=== PATIENT | female | born 1945 | race Caucasian/White ===

== ENCOUNTER 2025-05-20 21:32 | Inpatient (IN) | payer MEDICARE, SELFPAY ==
[2025-05-20 21:34] VITALS: BP 192/68; PULSE 76; RESP 15; TEMP 36.5; O2SAT 97; BMI 43.0
--- NOTE | 2025-05-20 21:56 | CT_ITS ---
EXAM: BRAIN/HEAD WITHOUT CONTRAST CLINICAL HISTORY: 79 y/o F with CONFUSION, HYPERTENSION. COMPARISON: None. TECHNIQUE: Routine CT imaging of the head without IV contrast. Additional multiplanar reformats were obtained. Dose reduction techniques were used including intermediate exposure control (AEC),iterative reconstruction technique, and/or mA and/or KV dose adjustments based on patient's size. FINDINGS: The ventricles, sulci and cisterns are normal for patient age. There is no evidence of acute intracranial hemorrhage or herniation. There is no midline shift, mass effect, or extra-axial collection. Moderate patchy supratentorial white matter hypodensities and moderate hypodensities throughout the bilateral centrum semiovale. The remy and white matter interfaces are otherwise maintained. The orbits, visualized paranasal sinuses and mastoids are unremarkable. No acute calvarial fracture or scalp hematoma. CT/Brain/Head without Contrast IMPRESSION: No acute intracranial finding. Reading Location: [id number]
--- NOTE | 2025-05-20 21:56 | EDS_ITS ---
HPI History of Present Illness Chief Complaint: Alt LOC Detail of Chief Complaint: Altered mental status, uncapped and HPI narrative Informant: patient, EMS and police/sales administration manager Onset/Context/Timing Onset: - (Uncertain please read HPI narrative for detail) Context: - (Uncertain) Timing: - (Unknown) Quality: Multiple reports regarding patient driving erratically and 30 miles of the Location: Pulled over by estate planning counselor who called paramedics Current Severity: Mild Maximum Severity: Moderate Worsened by: Patient apparently is not able to bathe or self, she was covered with feces Relieved by: Nothing Associated Symptoms Associated Symptoms: Patient does not know names of her medication. She is not from [facility]. Narrative Narrative: Patient is an 79-year-old woman. She apparently has history of type 2 diabetes, hypertension, hypercholesterolemia and does not believe she has heart disease. She is from [place]. She states she does have a home. Multiple calls were made regarding her driving erratically and 30+ miles on the speed limit. She was pulled over by estate planning counselor. mud worker was concerned because she was covered with feces and the floor mats were covered with feces. Squad was called and she was transported to [facility]. Patient is upset. She does not know her name. She is noted she is in a hospital in [place]. She knows that May 20. She however is unable to tell me her medications. She at times stumbles with the words. She denies headache. Denies double vision blurred vision loss of vision. Denies ringing or ears. Denies trouble with speech or swallowing. She denies chest pain, pressure, tightness or heaviness. She denies shortness of breath or difficulty breathing. She denies abdominal pain, nausea, vomiting or diarrhea. She reports no urinary symptoms. Nurse informing that she was covered with feces. They are presently cleaning her. She apparently attempted to get help but was unsuccessful and did not know how to get help. She states she resides in [place]. She has a doctor in [place]. Prior similar symptoms: No PFSH [facility] Medical History Breast cancer Hernia Anemia HTN (hypertension) Home Medications ?Medication ?Instructions ?Recorded ?Last Taken ?Type Unobtainable 05/20/25 Unknown History Allergy/AdvReac Type Severity Reaction Status Date / Time wool Allergy Rash Verified 05/20/25 22:06 rocha pepper (pepper green) AdvReac Diarrhea Verified 05/20/25 22:06 Penicillins AdvReac confusion Verified 05/20/25 21:38 Surgical History H/O colectomy Social History household members: none housing: house Smoking Status: Never smoker ROS ROS ED Constitutional Constitutional ED: Denies chills, fever(s), subjective or sweats Eyes Eyes: Denies blurry vision or change in vision ENT ENT ED: Denies ear pain, rhinorrhea or sore throat Cardiovascular Cardiovascular: Denies chest pain or palpitations Respiratory/Chest Respiratory/Chest: Denies cough, dyspnea or dyspnea on exertion Gastrointestinal Gastrointestinal: Reports other Details: Known nonreducible abdominal hernia, left lower quadrant ; Denies abdominal pain, nausea or vomiting Genitourinary Genitourinary ED: Denies dysuria, hematuria or urinary frequency Musculoskeletal Musculoskeletal: Denies arthralgias or myalgias Integumentary Denies abscess or rash Neurologic Neurologic: Denies headache(s), paresthesias or weakness Psychiatric Psychiatric: Reports anxiety; Denies depression or suicidal ideation Hematologic/Lymphatic Hematologic/Lymphatic: Reports systems reviewed and no addt'l complaints, except as documented EXAM Physical Exam Const Vital Signs: 05/20/25 21:34 05/20/25 22:45 Temperature 97.7 F L Temperature Source Oral Pulse Rate 76 82 Respiratory Rate 15 23 H Blood Pressure 192/68 H 180/81 H Blood Pressure Mean 109 108 Pulse Ox 97 98 Oxygen Delivery Method Room Air Positive well nourished and well developed Constitutional Narrative: Patient does have feces on her lower extremity. Blood pressure is elevated. She began to cry when the nurse informing that the state patrol called EMS because of her driving. She apparently is unable to care for herself. She is attempted to get help but has been unsuccessful. General Appearance ED: well developed, NAD and pallor; Negative for cyanotic or diaphoretic HEENT Reports dry mucous membranes HEENT Narrative: Head is atraumatic and normocephalic. Ears normal. Nares patent. Posterior pharynx is normal. Mouth ED: Yes dry mucous membranes Mouth: dry mucous membranes Eyes PERRL and EOMs intact bilaterally Eyes Narrative: Patient is wearing bifocals. General Eye ED: Negative for pale conjunctiva or scleral icterus Neck no lymphadenopathy, supple and no JVD Chest Wall inspection of chest normal and palpation of chest normal Resp normal respiratory effort and clear to auscultation bilaterally Cardio regular rate, regular rhythm, S1 normal heart sound, S2 normal heart sound and no murmurs GI non-distended; Negative for normal to inspection, nondistended, normoactive bowel sounds, non-tender, hepatosplenomegaly or no masses GI Narrative: There is a nonreducible left lower quadrant abdominal hernia that has been present for some time. Auscultation: hypoactive bowel sounds Palpation: soft and tender LLQ Narrative: Covered with feces per nursing staff. She was cleaned prior to obtaining straight cath urine. Back/Spine no CVA tenderness Extremity Negative for normal to inspection Extremity Narrative: Pitting edema of lower extremities with what appears to be chemical dermatitis and possibly venous stasis dermatitis. Nurses are still cleaning feces from her legs and feet. Neuro oriented x3 and CN's II-XII intact bilaterally Sensorium / Orientation: alert Psych Mood & Affect: anxious Skin No no rashes or lesions noted and skin turgor normal General Skin Exam: pallor; Negative for jaundice MDM MDM MDM Narrative Medical decision making narrative: Prior records also of breast cancer. Will obtain CT of the head to determine if there is any metastasis or any other abnormalities that would explain her disorientation. Will undertake metabolic infectious workup as well. Since she is not tachypneic, tachycardic hypoxic and there were no abnormal auscultate findings chest x-ray was not obtained. Lab Data Attestation: I reviewed the patient's lab results. Lab results narrative: CBC is unremarkable. UA is consistent with infection. Macro reveals protein, occult blood, nitrites, urobilinogen and leukoesterase. Micro reveals greater than 100 RBCs, 25-50 WBCs with only 0-5 epithelial cells and 4+ bacteria. Culture was obtained and patient was treated with Rocephin. She lists confusion as her reaction which is not a true allergy. Comprehensive metabolic panel is unremarkable. Glucose slightly elevated 125 with normal CO2 anion gap. Labs: Laboratory Results - last 24 hr 05/20/25 05/20/25 21:30 21:59 WBC 8.2 RBC 3.86 L Hgb 12.0 Hct 36.7 L MCV 95.1 MCH 31.1 MCHC 32.7 RDW Std Deviation 47.9 H RDW Coeff of Tessie 13.8 Plt Count 313 MPV 9.9 Immature Gran % (Auto) 0.400 Neut % (Auto) 66.1 Lymph % (Auto) 15.8 L [place] % (Auto) 10.1 H Eos % (Auto) 6.7 H Baso % (Auto) 0.9 Absolute Neuts (auto) 5.4 Absolute Lymphs (auto) 1.29 Nucleated RBC % 0 Sodium 141 Potassium 4.1 Chloride 105 Carbon Dioxide 25.4 Anion Gap 10 BUN 14 Creatinine 0.96 Estim Creat Clear Calc 57.77 Est GFR (MDRD) Non-Af 60 BUN/Creatinine Ratio 14.7 Glucose 125 H Lactic Acid 1.5 Calcium 9.9 Total Bilirubin 0.61 AST 26 ALT 15 Alkaline Phosphatase 85 Total Protein 8.2 Albumin 3.7 Globulin 4.6 H Albumin/Globulin Ratio 0.8 L Urine Color Yellow Urine Clarity Cloudy Urine pH 7.0 Ur Specific [place] 1.015 Urine Protein 30 H Urine Glucose (UA) Normal Urine Ketones Negative Urine Occult Blood 250 H Urine Nitrite Positive H Urine Bilirubin Negative Urine Urobilinogen 4 H Ur Leukocyte Esterase 100 H Urine RBC > 100 SEEN Urine WBC 25-50 SEEN Ur Squamous Epith Cells 0-5 SEEN Urine Bacteria 4+ Urine Mucus 0 SEEN Radiography Diagnostic Testing: Clinical Impression(s) from Imaging Studies Brain CT 05/20/25 21:56 IMPRESSION: No acute intracranial finding. Reading Location: [id number] CT of the head without contrast was reviewed by me at 2232. There is no evidence of mass effect, vasogenic edema, intracranial bleed. There is no fluid noted in the sinuses. Management Discussion w/another healthcare provider: Hospitalist (Case was discussed with Dr. Quentin Jeffries. She will be a full admit MedSurg. He was made aware of her findings and social situation) Treatment and Re-Evaluation :: This may represent delirium since patient at times is oriented and appropriate. At times she is not. Discharge Plan Dx/Rx/DC Orders Clinical Impression: Complicated urinary tract infection, Acute alteration in mental status, Elevated blood pressure reading with diagnosis of hypertension, Type 2 diabetes mellitus with hyperglycemia, History of breast cancer, Tachypnea Disposition Disposition: Acute Care Hospital [facility]
[2025-05-20 22:26] LABS: Mucous, Urine 0 SEEN /hpf (<or=2+)
[2025-05-20 22:29] LABS: Hematocrit 36.7 % (37-47); Hemoglobin 12.0 g/dL (12.0-15.0); Immature Granulocytes Count 0.030 X10^3/uL (0.0-0.0); Mean Corp Hgb Conc 32.7 g/dL (32-36); Mean Corpuscular Volume 95.1 fL (81-99); Mean Platelet Vol. 9.9 fl (6.2-12.0); NRBC Flagged by Analyzer 0 % (0-5); Platelet Count 313 K/mm3 (150-450); RBC Distribution Width CV 13.8 % (11.6-14.6); RBC Distribution Width SD 47.9 fl (35.1-43.9); Red Blood Count 3.86 M/mm3 (4.2-5.4); White Blood Count 8.2 K/mm3 (4.4-11.0)
[2025-05-20 22:30] LABS: Color, Urine Yellow (Yellow); Glucose, Dipstick Normal (Normal); Ketone-Dipstick Negative (Negative); Leukocyte Esterase-Dipstick 100 /ul (Negative); Nitrite-Dipstick Positive (Negative); Occult Blood-Urine 250 /ul (Negative); Protein-Dipstick 30 mg/dl (Negative); Specific Gravity, Urine 1.015 (1.002-1.030); Urine Bilirubin Dipstick Negative (Negative)
[2025-05-20 22:40] LABS: Red Blood Cells-Urine > 100 SEEN /hpf (0-5)
[2025-05-20 22:41] LABS: Squamous Epithelial Cells - UA 0-5 SEEN /hpf (5-10)
[2025-05-20 22:45] VITALS: BP 180/81; PULSE 82; RESP 23; O2SAT 98
[2025-05-20 22:57] LABS: AST(SGOT) 26 U/L (<=31); Alanine Aminotransfer ALT/SGPT 15 U/L (<=34); Albumin, Serum 3.7 g/dL (3.4-4.8); Alkaline Phosphatase 85 U/L (35-104); Anion Gap 10 (5-15); BUN 14 mg/dL (4-19); BUN/Creat Ratio 14.7 RATIO (10-20); Calcium,Total 9.9 mg/dL (7.6-11.0); Carbon Dioxide 25.4 mmol/L (21.0-32.0); Chloride 105 mmol/L (98-108); Estimated Creatinine Clearance 57.77 ml/min (50-250); Globulin 4.6 g/dL (2.2-4.2); Glucose 125 mg/dL (70-99); Potassium 4.1 mmol/L (3.3-5.1)
--- NOTE | 2025-05-20 23:25 | HP.PCM.HOS_ITS ---
HPI - General General Date of Admission: 05/20/25 Date of Service: 05/20/25 Chief Complaint: AMS. HPI Narrative SHEEBA DE LA VEGA, is a 79 F with a past medical history of essential hypertension, morbid obesity; BMI of 43 this admission, DM-2; of unknown control, history of breast cancer and history of colectomy who presents to [facility] ER with complaints of altered mental status. Ms. De La Vega is not a reliable historian at this time so information was gathered from chart, medical staff and computer. According to the records the patient was pulled over by [employer] for erratic breathing as she was apparently returning home to [place], [place] where she is apparently from after visiting family in the area. career specialist was concerned because she was covered with feces and the floor mats were covered with feces with EMS then activated to bring her here for further evaluation and treatment. The patient does not know her name but she is visibly upset she knows she is in [facility] and she knows it is May 20 but she is unable to recall any of her medications and she is also stumbling over her words. According to the ER physician she denied headache, blurred vision, difficulty swallowing, focal motor neurologic deficits, chest pain, palpitations, heart racing, lower extremity edema, abdominal pain, nausea, vomiting, constipation, dysuria, hematuria or rash. In the ER she was noted to have a UA positive for evidence of acute cystitis; with microscopic hematuria complicated by clinical evidence of Metabolic Encephalopathy further compounded by Uncontrolled Hypertension; blood pressure 192/68 mmHg present on admission with apparently new Diarrhea and she was then admitted to the general medical floor with telemetric monitoring for ongoing care for stay that is expected to extend beyond 2 midnights. [facility] Medical History Breast cancer Hernia Anemia HTN (hypertension) Home Medications ?Medication ?Instructions ?Recorded ?Last Taken ?Type Unobtainable 05/20/25 Unknown History Allergy/AdvReac Type Severity Reaction Status Date / Time wool Allergy Rash Verified 05/20/25 22:06 rocha pepper (pepper green) AdvReac Diarrhea Verified 05/20/25 22:06 Penicillins AdvReac confusion Verified 05/20/25 21:38 Surgical History H/O colectomy Social History household members: none housing: house Smoking Status: Never smoker ROS ROS Narrative Review of Systems: (Somewhat limited due to confusion) Constitutional: Patient denies fever or chills. Eyes: Patient denies changes in vision or discharge from eyes. ENT: Patient denies runny nose, sore throat or ear pain. Resp: Patient denies shortness of breath or cough. CV: Patient denies chest pain, palpitations, heart racing or lower extremity edema. GI: Patient admits to diarrhea with rectal urgency that is new. She is not sure if she had recent antibiotics. : Patient denies dysuria or hematuria. MSK: Patient denies arthralgias or myalgias. Skin: Patient denies rash, abscess, wounds or jaundice. Psych: Patient has an anxious personality but she denies SI or HI. Neuro: Patient admits to confusion but she denies headache, paresthesias or focal motor neurologic deficits. Allergy: Patient denies lip swelling, tonsillar urticaria. Hematology: Patient denies easy bleeding or easy bruisability. Endocrinology: Patient denies polyuria, polydipsia, polyphagia or heat/cold intolerance. 14 point ROS otherwise negative except for positives noted above in HPI. Vital Signs Vital Signs Vital Signs: 05/20/25 21:34 05/20/25 22:45 Temperature 97.7 F L Temperature Source Oral Pulse Rate 76 82 Respiratory Rate 15 23 H Blood Pressure 192/68 H 180/81 H Blood Pressure Mean 109 108 Pulse Ox 97 98 Oxygen Delivery Method Room Air Weight Weight: 250 lb 10.649 oz Body Mass Index (BMI) 43.0 Physical Exam Const alert and no apparent distress Constitutional Narrative: Patient is morbidly obese and alert but confused. Orientation / Consciousness: confused HEENT normocephalic, head/scalp atraumatic, hearing grossly normal bilaterally and moist oral mucous membranes Eyes PERRL, EOMs intact bilaterally and conjunctivae normal Neck no lymphadenopathy, supple and no JVD Resp normal respiratory effort, no retractions, no use of accessory muscles and clear to auscultation bilaterally Cardio regular rate and regular rhythm GI GI Narrative: Patient has non-reducible abdominal hernia in the LLQ. Extremity normal to inspection, full ROM and no clubbing, cyanosis or edema Skin Skin Narrative: Patient has no evidence of rash, abscess, wounds or jaundice. Neuro CN's II-XII intact bilaterally and moves all extremities Sensorium / Orientation: awake, alert and oriented to person Speech: speech normal Psych affect normal Results Medical Records Data Attestation: I reviewed the patient's medical records Lab / Micro Data Attestation: I reviewed the patient's lab results. 05/20/25 21:30 05/20/25 21:30 Labs: Laboratory Results - last 24 hr 05/20/25 21:30: WBC 8.2, RBC 3.86 L, Hgb 12.0, Hct 36.7 L, MCV 95.1, MCH 31.1, MCHC 32.7, RDW Std Deviation 47.9 H, RDW Coeff of Tessie 13.8, Plt Count 313, MPV 9.9, Immature Gran % (Auto) 0.400, Neut % (Auto) 66.1, Lymph % (Auto) 15.8 L, M bri % (Auto) 10.1 H, Eos % (Auto) 6.7 H, Baso % (Auto) 0.9, Absolute Neuts (auto) 5.4, Absolute Lymphs (auto) 1.29, Nucleated RBC % 0, Sodium 141, Potassium 4.1, Chloride 105, Carbon Dioxide 25.4, Anion Gap 10, BUN 14, Creatinine 0.96, Estim Creat Clear Calc 57.77, Est GFR (MDRD) Non-Af 60, BUN/Creatinine Ratio 14.7, Glucose 125 H, Lactic Acid 1.5, Calcium 9.9, Total Bilirubin 0.61, AST 26, ALT 15, Alkaline Phosphatase 85, Total Protein 8.2, Albumin 3.7, Globulin 4.6 H, Albumin/Globulin Ratio 0.8 L 05/20/25 21:59: Urine Color Yellow, Urine Clarity Cloudy, Urine pH 7.0, Ur Specific [place] 1.015, Urine Protein 30 H, Urine Glucose (UA) Normal, Urine Ketones Negative, Urine Occult Blood 250 H, Urine Nitrite Positive H, Urine Bilirubin Negative, Urine Urobilinogen 4 H, Ur Leukocyte Esterase 100 H, Urine RBC > 100 SEEN, Urine WBC 25-50 SEEN, Ur Squamous Epith Cells 0-5 SEEN, Urine Bacteria 4+, Urine Mucus 0 SEEN Imaging Radiology Impression Brain CT 05/20/25 21:56 IMPRESSION: No acute intracranial finding. Reading Location: [id number] Assessment & Plan Assessment/Plan (1) Acute cystitis with hematuria: (2) Diarrhea: QUALIFIERS: Diarrhea type: presumed infectious Qualified Code(s): R19.7 - Diarrhea, unspecified (3) Uncontrolled hypertension: (4) Acute metabolic encephalopathy: (5) Morbid obesity with BMI of 40.0-44.9, adult: PLAN: Plan 1. UA positive for evidence of Acute Cystitis; with microscopic hematuria - Admit to general medical floor with telemetric monitoring. Continue IV ceftriaxone begun in the ER and await culture and sensitivity data. Give acetaminophen as needed for pain or fever. Give ondansetron IV as needed for nausea or vomiting. 2. Diarrhea; with the patient covered with stools upon arrival complicating #1 - Check stool studies and place on enteric precautions. Begin empiric IV metronidazole until C. difficile definitively ruled out. 3. Uncontrolled Hypertension; blood pressure 192/68 mmHg present on admission complicating #1 & #2 - Patient's blood pressure spontaneously improved to 133/84 mmHg after initial round of treatment which only has included ceftriaxone. Give hydralazine IV as needed for systolic blood pressure greater than 160 mmHg. Finally, we will attempt to obtain patient's official medication list so she can restart her home medications if deemed appropriate by daysidft hospitalist. 4. Acute Metabolic Encephalopathy attributable to #1 - #3 - Avoid potentially RAW SAMPLER-active agents in an effort to allow sensorium to clear. Check MEAGAN, UDS, TSH, B12 and Folate to evaluate for other potential reversible causes of confusion. Otherwise, continue supportive care as outlined in plan and monitor for improvement. 5. Morbid (class III) obesity; BMI of 43 this admission adding to the burden of disease outlined from #1 - #4 - Weight loss will be recommended. Check TSH. This complicates her case and may hamper recovery. 6. DM-2; of unknown control - ADA diet. FSBS q. AC/HS plus lowest-intensity SSI. Check HgbA1c to objectively assess quality of diabetic control. 7. History of breast cancer - Noted. 8. History of colectomy - Noted. 9. DVT prophylaxis - Enoxaparin 40 mg SQ twice daily plus SCDs. Total time: Approximately (but not less than) 75 minutes. Charges/Coding Visit Charges Inpatient E&M: 06604 Init Hosp L3
[2025-05-20] MEDS: Ceftriaxone 2 GM in 0.9% Normal Saline (50mL MB+) 50 ML IV (23:26)
[2025-05-20 23:33] VITALS: BP 133/84; PULSE 82; RESP 19; TEMP 36.5; O2SAT 98
[2025-05-20 23:34] VITALS: BP 133/84; PULSE 82; RESP 19; TEMP 36.5; O2SAT 908
[2025-05-21] VITALS (10 sets, daily range): BP systolic 151–190; BP diastolic 57–90; PULSE 81–88; RESP 16–19; TEMP 36.6–37; O2SAT 93–97; BMI 46.4; BMI 46.7
[2025-05-21 00:29] LABS: Magnesium 1.9 mg/dL (1.5-2.2)
[2025-05-21] MEDS: 0.9% Normal Saline (1000mL) 1,000 ML 100 ML IV (00:32)
[2025-05-21] MEDS: metroNIDAZOLE 500 MG/100 ML BAG 100 MG IV ×2 (00:34→05:10)
[2025-05-21 00:38] LABS: Barbiturate Urine NEGATIVE (< 200 ng/mL); Benzodiazepine Urine NEGATIVE (< 200 ng/mL); PCP Urine NEGATIVE (< 25 ng/mL); THC Urine NEGATIVE (< 50 ng/mL)
[2025-05-21 00:38] LABS: Alcohol, Blood (Medical)-Serum < 10.1 mg/dL (<=10.0); FOLATES,SERUM (FOLIC ACID) 17.40 ng/mL (4.60-34.80)
[2025-05-21] MEDS: 0.9% Saline Lock 10 ML Syringe IV (00:57)
[2025-05-21 05:24] LABS: Hematocrit 33.1 % (37-47); Hemoglobin 10.9 g/dL (12.0-15.0); Immature Granulocytes Count 0.020 X10^3/uL (0.0-0.0); Mean Corp Hgb Conc 32.9 g/dL (32-36); Mean Corpuscular Volume 94.0 fL (81-99); Mean Platelet Vol. 9.4 fl (6.2-12.0); NRBC Flagged by Analyzer 0 % (0-5); Platelet Count 291 K/mm3 (150-450); RBC Distribution Width CV 13.8 % (11.6-14.6); RBC Distribution Width SD 47.5 fl (35.1-43.9); Red Blood Count 3.52 M/mm3 (4.2-5.4); White Blood Count 7.9 K/mm3 (4.4-11.0)
[2025-05-21 06:13] LABS: Vitamin B12 522 pg/mL (180-914)
[2025-05-21 07:05] LABS: AST(SGOT) 25 U/L (<=31); Alanine Aminotransfer ALT/SGPT 12 U/L (<=34); Albumin, Serum 3.3 g/dL (3.4-4.8); Alkaline Phosphatase 75 U/L (35-104); Anion Gap 12 (5-15); BUN 13 mg/dL (4-19); BUN/Creat Ratio 15.5 RATIO (10-20); Calcium,Total 9.4 mg/dL (7.6-11.0); Carbon Dioxide 20.1 mmol/L (21.0-32.0); Chloride 107 mmol/L (98-108); Cholesterol 121 mg/dL (<=200); Estimated Creatinine Clearance 63.45 ml/min (50-250); Globulin 4.2 g/dL (2.2-4.2); Glucose 117 mg/dL (70-99); Low Density Lipoprotein Calc. 74 mg/dL; Potassium 4.0 mmol/L (3.3-5.1); Triglycerides 88 mg/dL; Very Low Density Lipoprotein 18 mg/dL (5-40); cholesterol:hdl ratio screen 4.17
--- NOTE | 2025-05-21 08:07 | PCM.PN.HOSP ---
Reason for Visit Reason for Visit: Altered mental status Subjective Subjective Mental status back to baseline today. She is not alert and oriented x 3 and no stumbling over her words. She states her lower extremity skin changes are chronic. She does report some dysuria and frequency. We did discuss placement at discharge but she was initially a little bit hesitant but seems more amenable at the end of her conversation. Objective Data Objective Data Vital Signs: Vital Signs Temp Pulse Resp BP Pulse Ox O2 Del Method 98 F 87 17 151/57 H 93 Room Air 05/21/25 04:23 05/21/25 07:12 05/21/25 04:23 05/21/25 06:52 05/21/25 04:23 05/21/25 04:23 Oxygen Delivery Method Room Air Weight: 115.2 kg Body Mass Index (BMI) 46.7 Intake & Output: Intake and Output for Last 24 Hours 05/19/25 05/20/25 05/21/25 23:59 23:59 23:59 Intake Total 450 / 450 Balance 450 / 450 Lab / Micro Data 05/21/25 05:08 05/21/25 05:08 Labs: Laboratory Results - last 24 hr 05/20/25 21:30: WBC 8.2, RBC 3.86 L, Hgb 12.0, Hct 36.7 L, MCV 95.1, MCH 31.1, MCHC 32.7, RDW Std Deviation 47.9 H, RDW Coeff of Tessie 13.8, Plt Count 313, MPV 9.9, Immature Gran % (Auto) 0.400, Neut % (Auto) 66.1, Lymph % (Auto) 15.8 L, Hall % (Auto) 10.1 H, Eos % (Auto) 6.7 H, Baso % (Auto) 0.9, Absolute Neuts (auto) 5.4, Absolute Lymphs (auto) 1.29, Nucleated RBC % 0, Sodium 141, Potassium 4.1, Chloride 105, Carbon Dioxide 25.4, Anion Gap 10, BUN 14, Creatinine 0.96, Estim Creat Clear Calc 57.77, Est GFR (MDRD) Non-Af 60, BUN/Creatinine Ratio 14.7, Glucose 125 H, Hemoglobin A1c 5.5, Lactic Acid 1.5, Calcium 9.9, Phosphorus 3.2, Magnesium 1.9, Total Bilirubin 0.61, AST 26, ALT 15, Alkaline Phosphatase 85, Total Protein 8.2, Albumin 3.7, Globulin 4.6 H, Albumin/Globulin Ratio 0.8 L, TSH 1.690 05/20/25 21:39: Serum Folate 17.40, Ethyl Alcohol < 10.1 05/20/25 21:59: Urine Color Yellow, Urine Clarity Cloudy, Urine pH 7.0, Ur Specific [place] 1.015, Urine Protein 30 H, Urine Glucose (UA) Normal, Urine Ketones Negative, Urine Occult Blood 250 H, Urine Nitrite Positive H, Urine Bilirubin Negative, Urine Urobilinogen 4 H, Ur Leukocyte Esterase 100 H, Urine RBC > 100 SEEN, Urine WBC 25-50 SEEN, Ur Squamous Epith Cells 0-5 SEEN, Urine Bacteria 4+, Urine Mucus 0 SEEN, Urine Opiates Screen NEGATIVE, U Buprenorphine Qual NEGATIVE, Ur Oxycodone Screen NEGATIVE, Urine Methadone Screen NEGATIVE, Urine Fentanyl Screen NEGATIVE, Ur Barbiturates Screen NEGATIVE, Ur Phencyclidine Scrn NEGATIVE, Ur Amphetamines Screen NEGATIVE, U Benzodiazepines Scrn NEGATIVE, Urine Cocaine Screen NEGATIVE, U Cannabinoids Screen NEGATIVE 05/21/25 05:08: WBC 7.9, RBC 3.52 L, Hgb 10.9 L, Hct 33.1 L, MCV 94.0, MCH 31.0, MCHC 32.9, RDW Std Deviation 47.5 H, RDW Coeff of Tessie 13.8, Plt Count 291, MPV 9.4, Immature Gran % (Auto) 0.300, Neut % (Auto) 67.6, Lymph % (Auto) 15.3 L, Hall % (Auto) 10.4 H, Eos % (Auto) 5.6 H, Baso % (Auto) 0.8, Absolute Neuts (auto) 5.4, Absolute Lymphs (auto) 1.21, Nucleated RBC % 0, Sodium 139, Potassium 4.0, Chloride 107, Carbon Dioxide 20.1 L, Anion Gap 12, BUN 13, Creatinine 0.85, Estim Creat Clear Calc 63.45, Est GFR (MDRD) Non-Af 69, BUN/Creatinine Ratio 15.5, Glucose 117 H, Calcium 9.4, Total Bilirubin 0.53, AST 25, ALT 12, Alkaline Phosphatase 75, Total Protein 7.5, Albumin 3.3 L, Globulin 4.2, Albumin/Globulin Ratio 0.8 L, Triglycerides 88, Cholesterol 121, LDL Cholesterol, Calc 74, VLDL Cholesterol 18, HDL Cholesterol 29 L, Cholesterol/HDL Ratio 4.17, Vitamin B12 522 05/21/25 06:49: POC Glucose 151 H Radiography Diagnostic Testing: Radiology Impression Brain CT 05/20/25 21:56 IMPRESSION: No acute intracranial finding. Reading Location: [facility] Physical Exam Const alert, oriented x3, no apparent distress and well nourished; Negative for average body habitus or healthy appearing Constitutional Narrative: Morbidly obese, older, white female, sitting up in a chair at the bedside, family at the bedside, patient appears comfortable and nontoxic, eating lunch and talking to the nursing home social worker HEENT head/scalp atraumatic and moist oral mucous membranes HEENT Narrative: Dentures in place, Mallampati 3, no thrush Head and Scalp: normocephalic Resp normal respiratory effort, no retractions, no use of accessory muscles and clear to auscultation bilaterally Auscultation: Negative for rales, rhonchi or wheezes Cardio regular rate, regular rhythm, S1 normal heart sound, S2 normal heart sound, no murmurs, no rub and no clicks GI normal to inspection, nondistended, normoactive bowel sounds, soft to palpation and non-tender GI Narrative: Large protuberant abdomen with noted old surgical incision Extremity Extremity Narrative: Chronic lower extremity venous stasis changes with venous stasis wounds with no signs of infection, chronic lower extremity edema, no clubbing or cyanosis Neuro moves all extremities and no focal motor deficits Neuro Narrative: Generalized weakness noted with no focal deficits, weakness is greater proximal to distally Speech: speech normal Psych affect normal Psych Narrative: Eye contact is good and patient interacts appropriately Assessment & Plan Assessment/Plan (1) Acute metabolic encephalopathy: (2) Uncontrolled hypertension: (3) Diarrhea: QUALIFIERS: Diarrhea type: presumed infectious Qualified Code(s): R19.7 - Diarrhea, unspecified (4) Abnormal urinalysis: PLAN: Plan Toxic/metabolic encephalopathy - Resolved - Suspect may be related to acute cystitis - B12, folate, and TSH are all within normal limits Abnormal UA - Strongly suggestive of acute urinary tract infection - Continue ceftriaxone - Await cx results and narrow antibiotics as appropriate Diarrhea - Stool lactoferrin negative - C. difficile is negative - Enteric panel pending Bilateral lower extremity chronic venous stasis - No signs of infection - Consult wound care Generalized weakness/debility - PT/OT consultation - commercial sales manager/social work consultation - Highly anticipate patient will need placement at discharge at rehab prior to going home--> patient will need pre-CERT as she has [employer] Medicare Essential hypertension/hyperlipidemia - Medications from home have been verified so we will restart home atenolol and Aldactone - continue home as needed hydralazine - Continue home pravastatin DM-2 - Hold home glimepiride - A1c is 5.5 - Add SSI - Change diet to cardiac/carb controlled - Accu-Cheks as ordered Osteoporosis - restart alendronate at discharge History of breast cancer/history of colon cancer - Remote and in remission -continue ongoing outpatient follow-up Chronic anemia - Normocytic - Monitor counts Morbid obesity - BMI 46.5 - Recommend weight loss - Complicates treatment, prognosis, outcomes DVT prophylaxis - Continue enoxaparin SQ twice daily CODE STATUS - Full code Charges/Coding Visit Charges Inpatient E&M: 03955 Subs Hosp L2
[2025-05-21] MEDS: PERMETHRIN 5% TOPICAL (10:47)
--- NOTE | 2025-05-21 10:57 | NURSING ---
Assisted to side of the bed. Pt stood up to go to the chair and had a xlg soft Black BM. PT states she takes iron daily. Sample sent down per orders. Pt incont of urine as well. Pt assisted onto BSC where she did have alittle more of a BM and some urine. Pt cleaned up and now sitting in chair. Purewick on, attends on and call light in reach.
--- NOTE | 2025-05-21 15:13 | CASEMGMT ---
SW Assessment: Face to Face with pt for initial transition planning/care coordination assessment. SW introduced self and role at [facility], pt voices understanding and consents to assessment. Pt friend Quentin present in the room; pt agreeable to Quentin remaining in the room during assessment. Care providers, pharmacy, and demographics verified/updated. Admitting Dx: UTI, Diarrhea, acute metabolic encephalopathy PCP: Zev Specialists:None Preferred Pharmacy: [facility] Insurance: [employer] Prescription Benefit: yes LNOK: Jailyn, friend and Quentin, roomate Living Arrangements: Pt lives in a single story home with 5-6 steps to enter. There is a handrail on one side. Pt has roommate, Quentin, who assists with cooking and cleaning. Pt also has assistance with bathing as needed. Transportation: Pt drives self and denies concerns with transportation. Pt was pulled over and sent to hospital due to erratic driving. Pt reports that she must not have felt well. 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 YANN Collins
--- NOTE | 2025-05-21 15:21 | CASEMGMT ---
Social Work- A list of SNF providers including quality and resource use data and consistent with the patient?s preferred geographic region, medical needs, and insurance network were provided from the [employer] Guide. Pt to review and make three selections. SW remains available to follow. YANN Collins
--- NOTE | 2025-05-21 15:23 | CASEMGMT ---
Addendum entered by Maribell Sapp 05/21/25 16:36: SW assisted pt friend in problem-solving way to get back to [place]. Friend does not have insurance, does not know sisters' contacts, and reports that friends have been drinking all weekend. Pt will see if he can get a ride with [employer] when they come get the keys for the car. YANN Collins Original Note: Social Work- SW provided [employer] contact number so that pt can have car towed home, as it is sitting alongside [address] due to being pulled over and transported to hospital. Pt reports that she feels comfortable calling to make arrangements. SW remains available to assist as needed. YANN Collins
--- NOTE | 2025-05-21 16:33 | CASEMGMT ---
Social Work- Pt selected [facility] [place], [place], and [facility] as FOC. SW completed referrals in [facility]. SW remains available to follow. YANN Collins
[2025-05-21] MEDS: Nystatin Ointment 1 APPLIC TOPICAL (22:03)
[2025-05-22 04:00] VITALS: BP 123/50; PULSE 81; RESP 16; TEMP 36.8; O2SAT 95
[2025-05-22 05:23] LABS: Hematocrit 33.5 % (37-47); Hemoglobin 11.3 g/dL (12.0-15.0); Immature Granulocytes Count 0.060 X10^3/uL (0.0-0.0); Mean Corp Hgb Conc 33.7 g/dL (32-36); Mean Corpuscular Volume 93.8 fL (81-99); Mean Platelet Vol. 9.6 fl (6.2-12.0); NRBC Flagged by Analyzer 0 % (0-5); Platelet Count 294 K/mm3 (150-450); RBC Distribution Width CV 13.8 % (11.6-14.6); RBC Distribution Width SD 47.2 fl (35.1-43.9); Red Blood Count 3.57 M/mm3 (4.2-5.4); White Blood Count 10.9 K/mm3 (4.4-11.0)
[2025-05-22 05:43] LABS: AST(SGOT) 19 U/L (<=31); Alanine Aminotransfer ALT/SGPT 9 U/L (<=34); Albumin, Serum 3.2 g/dL (3.4-4.8); Alkaline Phosphatase 66 U/L (35-104); Anion Gap 10 (5-15); BUN 13 mg/dL (4-19); BUN/Creat Ratio 13.5 RATIO (10-20); Calcium,Total 9.4 mg/dL (7.6-11.0); Carbon Dioxide 21.5 mmol/L (21.0-32.0); Chloride 106 mmol/L (98-108); Estimated Creatinine Clearance 57.38 ml/min (50-250); Globulin 4.0 g/dL (2.2-4.2); Glucose 119 mg/dL (70-99); Magnesium 1.9 mg/dL (1.5-2.2); Potassium 3.9 mmol/L (3.3-5.1)
[2025-05-22 05:44] VITALS: BMI 46.7
--- NOTE | 2025-05-22 07:12 | PCM.PN.HOSP ---
Reason for Visit Reason for Visit: Altered Mental Status Subjective Subjective Pt states that she is feeling much better today. Less dysuria and suprapubic pain. Happy that her army helicopter pilot is coming in today. Objective Data Objective Data Vital Signs: Vital Signs Temp Pulse Resp BP Pulse Ox O2 Del Method 98.2 F 81 16 123/50 H 95 Room Air 05/22/25 04:00 05/22/25 04:00 05/22/25 04:00 05/22/25 04:00 05/22/25 04:00 05/22/25 04:00 Oxygen Delivery Method Room Air Weight: 115.3 kg Body Mass Index (BMI) 46.7 Intake & Output: Intake and Output for Last 24 Hours 05/20/25 05/21/25 05/22/25 23:59 23:59 23:59 Intake Total 1853.33 / 1853.33 50 / 50 Output Total 1350 / 1350 350 / 350 Balance 503.33 / 503.33 -300 / -300 Lab / Micro Data 05/22/25 04:57 05/22/25 04:57 Labs: Laboratory Results - last 24 hr 05/21/25 06:49: POC Glucose 151 H 05/21/25 11:54: POC Glucose 151 H 05/21/25 17:20: POC Glucose 167 H 05/21/25 22:20: POC Glucose 114 H 05/22/25 04:57: WBC 10.9, RBC 3.57 L, Hgb 11.3 L, Hct 33.5 L, MCV 93.8, MCH 31.7, MCHC 33.7, RDW Std Deviation 47.2 H, RDW Coeff of Tessie 13.8, Plt Count 294, MPV 9.6, Immature Gran % (Auto) 0.500, Neut % (Auto) 75.3 H, Lymph % (Auto) 10.6 L, [place] % (Auto) 9.2, Eos % (Auto) 3.9, Baso % (Auto) 0.5, Absolute Neuts (auto) 8.2 H, Absolute Lymphs (auto) 1.16, Nucleated RBC % 0, Sodium 137, Potassium 3.9, Chloride 106, Carbon Dioxide 21.5, Anion Gap 10, BUN 13, Creatinine 0.94, Estim Creat Clear Calc 57.38, Est GFR (MDRD) Non-Af 61, BUN/Creatinine Ratio 13.5, Glucose 119 H, Calcium 9.4, Phosphorus 3.0, Magnesium 1.9, Total Bilirubin 0.87, AST 19, ALT 9, Alkaline Phosphatase 66, Total Protein 7.2, Albumin 3.2 L, Globulin 4.0, Albumin/Globulin Ratio 0.8 L 05/22/25 06:36: POC Glucose 129 H Micro: Microbiology 05/21/25 10:40 Stool Stool Lactoferrin - Final 05/21/25 10:40 Stool Enteric Bacteriology - Final 05/21/25 10:40 Stool Clostridioides difficile (PCR) - Final 05/20/25 21:59 Urine Catheter - Catheter Urine Culture - Preliminary GNR lactose school coordinator Physical Exam Const alert, oriented x3, no apparent distress and well nourished; Negative for average body habitus or healthy appearing Constitutional Narrative: Morbidly obese, older, white female, sitting up in bed, appears like she is feeling better HEENT normocephalic, head/scalp atraumatic and moist oral mucous membranes Resp normal respiratory effort, no retractions, no use of accessory muscles and clear to auscultation bilaterally Auscultation: Negative for rales, rhonchi or wheezes Cardio regular rate, regular rhythm, S1 normal heart sound, S2 normal heart sound, no murmurs, no rub, no gallops and no clicks GI normal to inspection, nondistended, normoactive bowel sounds, soft to palpation and non-tender GI Narrative: Large protuberant abdomen with noted old surgical incision Extremity Extremity Narrative: Chronic lower extremity venous stasis changes with venous stasis wounds with no signs of infection, chronic lower extremity edema, no clubbing or cyanosis Neuro moves all extremities and no focal motor deficits Neuro Narrative: Generalized weakness noted with no focal deficits, weakness is greater proximal to distally Speech: speech normal Psych affect normal Psych Narrative: Eye contact is good and patient interacts appropriately Assessment & Plan Assessment/Plan (1) Acute metabolic encephalopathy: (2) Uncontrolled hypertension: (3) Diarrhea: QUALIFIERS: Diarrhea type: presumed infectious Qualified Code(s): R19.7 - Diarrhea, unspecified (4) Abnormal urinalysis: PLAN: Plan GNR UTI - Continue ceftriaxone - Await cx results and narrow antibiotics as appropriate Generalized weakness/debility - PT/OT following - imaging account manager/social work --> referrals have been made and pending acceptance - Highly anticipate patient will need placement at discharge at rehab prior to going home--> patient will need pre-CERT as she has [employer] Medicare Toxic/metabolic encephalopathy - Resolved Diarrhea - resolved Bilateral lower extremity chronic venous stasis - No signs of infection - Consult wound care--> to see Friday Essential hypertension/hyperlipidemia - Atenolol and aldactone to continue - add Amlodipine 10 mg daily as BP is not at goal - continue as needed hydralazine - Continue home pravastatin DM-2 - Hold home glimepiride - A1c is 5.5 - Add SSI - Change diet to cardiac/carb controlled - Accu-Cheks as ordered Osteoporosis - restart alendronate at discharge History of breast cancer/history of colon cancer - Remote and in remission - continue ongoing outpatient follow-up Chronic anemia - Normocytic - Monitor counts Morbid obesity - BMI 46.5 - Recommend weight loss - Complicates treatment, prognosis, outcomes DVT prophylaxis - Continue enoxaparin SQ twice daily CODE STATUS - Full code Charges/Coding Visit Charges Inpatient E&M: 79730 Subs Hosp L2
[2025-05-22 09:25] VITALS: BP 154/61; PULSE 91; RESP 18; TEMP 36.4; O2SAT 96
[2025-05-22] MEDS: Aspirin E.C. 81 MG Tablet PO (09:37)
[2025-05-22] MEDS: Nystatin Ointment 1 APPLIC TOPICAL ×2 (09:37→21:38)
[2025-05-22 09:50] VITALS: O2SAT 94
[2025-05-22 14:22] VITALS: BP 133/60; PULSE 72; RESP 18; TEMP 36.5; O2SAT 99
[2025-05-22 20:00] VITALS: BP 127/65; PULSE 71; RESP 16; TEMP 36.4; O2SAT 99
[2025-05-23] VITALS: PULSE 71
[2025-05-23 02:00] VITALS: BP 132/54; PULSE 68; RESP 16; TEMP 36.4; O2SAT 98
[2025-05-23 05:03] LABS: Hematocrit 32.0 % (37-47); Hemoglobin 10.5 g/dL (12.0-15.0); Mean Corp Hgb Conc 32.8 g/dL (32-36); Mean Corpuscular Volume 95.5 fL (81-99); Mean Platelet Vol. 9.6 fl (6.2-12.0); Platelet Count 279 K/mm3 (150-450); RBC Distribution Width CV 14.1 % (11.6-14.6); RBC Distribution Width SD 48.9 fl (35.1-43.9); Red Blood Count 3.35 M/mm3 (4.2-5.4); White Blood Count 8.4 K/mm3 (4.4-11.0)
[2025-05-23 06:00] VITALS: BMI 45.2
[2025-05-23 06:08] LABS: Anion Gap 9 (5-15); BUN 16 mg/dL (4-19); BUN/Creat Ratio 18.4 RATIO (10-20); Calcium,Total 9.3 mg/dL (7.6-11.0); Carbon Dioxide 22.0 mmol/L (21.0-32.0); Chloride 107 mmol/L (98-108); Estimated Creatinine Clearance 62.02 ml/min (50-250); Glucose 109 mg/dL (70-99); Potassium 3.9 mmol/L (3.3-5.1)
[2025-05-23 08:03] VITALS: O2SAT 93
--- NOTE | 2025-05-23 08:17 | PCM.PN.HOSP ---
Reason for Visit Reason for Visit: Diagnoses Morbid (severe) obesity due to excess calories (05/20/25) Metabolic encephalopathy (05/20/25) Essential (primary) hypertension (05/20/25) Acute cystitis with hematuria (05/20/25) Diarrhea, unspecified (05/20/25) Unspecified abnormal findings in urine (05/20/25) Body mass index [BMI] 40.0-44.9, adult (05/20/25) Subjective Subjective Feeling well. Objective Data Objective Data Vital Signs: Vital Signs Temp Pulse Resp BP Pulse Ox O2 Del Method 36.4 C L 68 16 132/54 H 93 Room Air 05/23/25 02:00 05/23/25 02:00 05/23/25 02:00 05/23/25 02:00 05/23/25 08:03 05/23/25 08:03 Oxygen Delivery Method Room Air Weight: 111.6 kg Body Mass Index (BMI) 45.2 Intake & Output: Intake and Output for Last 24 Hours 05/21/25 05/22/25 05/23/25 23:59 23:59 23:59 Intake Total 1853.33 / 1853.33 50 / 410 410 / 410 Output Total 1350 / 1350 350 / 350 Balance 503.33 / 503.33 -300 / 60 410 / 410 Lab / Micro Data 05/23/25 04:36 05/23/25 04:36 Labs: Laboratory Results - last 24 hr 05/22/25 10:53: POC Glucose 155 H 05/22/25 15:28: POC Glucose 116 H 05/22/25 21:54: POC Glucose 121 H 05/23/25 04:36: WBC 8.4, RBC 3.35 L, Hgb 10.5 L, Hct 32.0 L, MCV 95.5, MCH 31.3, MCHC 32.8, RDW Std Deviation 48.9 H, RDW Coeff of Tessie 14.1, Plt Count 279, MPV 9.6, Sodium 138, Potassium 3.9, Chloride 107, Carbon Dioxide 22.0, Anion Gap 9, BUN 16, Creatinine 0.87, Estim Creat Clear Calc 62.02, Est GFR (MDRD) Non-Af 67, BUN/Creatinine Ratio 18.4, Glucose 109 H, Calcium 9.3 05/23/25 06:45: POC Glucose 107 H Micro: Microbiology 05/20/25 21:59 Urine Catheter - Catheter Urine Culture - Preliminary GNR lactose top lift compresser 05/21/25 10:40 Stool Stool Lactoferrin - Final 05/21/25 10:40 Stool Enteric Bacteriology - Final 05/21/25 10:40 Stool Clostridioides difficile (PCR) - Final Physical Exam Const alert and no apparent distress HEENT head/scalp atraumatic and moist oral mucous membranes Resp normal respiratory effort, no retractions, no use of accessory muscles and clear to auscultation bilaterally Cardio regular rate, regular rhythm, S1 normal heart sound and S2 normal heart sound GI normal to inspection, nondistended, normoactive bowel sounds, soft to palpation, non-tender and non-distended Extremity normal to inspection and full ROM Neuro Sensorium / Orientation: awake and alert Assessment & Plan Assessment/Plan (1) UTI (urinary tract infection): PLAN: UCx showing Change to nitrofurantoin from ceftriaxone. (2) Debility: PLAN: plan for SNF awaiting on precertification. (3) Acute metabolic encephalopathy: PLAN: 2/[address] negative. UDS negative. PLAN: Plan Chronic conditions: SSI anemia: stable. obesity class III: complicates care and recovery. VTE prophylaxis: LMWH. Disposition: to [facility] pending insurance authorization. Charges/Coding Visit Charges Inpatient E&M: 33776 Subs Hosp L2
--- NOTE | 2025-05-23 09:06 | CASEMGMT ---
Addendum entered by Susana Torres 05/23/25 12:02: [facility] accepted and will submit for precert. Radha and SUELLEN Hernandez asked to cancell referral. Susana Torres DC Planning Asst. Original Note: Discharge Planning Updates sent to Radha Stafford, and SUELLEN Hernandez. Susana Torres DC Planning Asst.
[2025-05-23 09:35] VITALS: BP 138/46; PULSE 75; RESP 18; TEMP 36.3; O2SAT 98
[2025-05-23] MEDS: Aspirin E.C. 81 MG Tablet PO (10:01)
[2025-05-23] MEDS: Petrolatum 33% Tube 1 APPLIC TOPICAL ×2 (10:02→21:13)
[2025-05-23] MEDS: Nystatin Ointment 1 APPLIC TOPICAL (10:03)
--- NOTE | 2025-05-23 12:01 | CASEMGMT ---
Social Work- SW met with pt to update on SNF referrals. Pt reports that she will [facility]. [facility] notified that precert can be started for [facility]. SW remains available to follow. Plan: [facility]; precert pend YANN Collins
[2025-05-23 14:46] VITALS: BP 142/58; PULSE 63; RESP 18; TEMP 36.4; O2SAT 100
--- NOTE | 2025-05-23 16:43 | CHAPLAIN ---
Type of Pastoral Visit _x__ Initial Visit ___ Follow-up Visit ___ On-call Visit ___ General Patient Visit ___ Spiritual Assessment ___ Family Conference ___ Bereavement ___ Rapid Response ___ Code Blue ___ Other (describe below) Pastoral Care Referral From _x__ Patient ___ Family ___ Nurse ___ Physician ___ Resident Care Spec ___ Alum Operator ___ Other (describe below) Sacrament/Intervention _x__ Active listening ___ Anointing ___ Jehovah'S Witness ___ Bereavement ___ Communion ___ Karen exploration ___ _x__ Life review _x__ Prayer ___ Reconciliation ___ Sacrament of Sick _x__ Supportive presence ___ Wedding ___ Other (describe below) Pastoral Comments patient gave long and involved life review and her concerns for the future; pt wanted and received time to be heard; pt welcomed prayer
[2025-05-23 20:45] VITALS: BP 126/67; PULSE 61; RESP 18; TEMP 36.6; O2SAT 98
[2025-05-24 02:37] VITALS: BP 120/51; PULSE 66; RESP 16; TEMP 36.7; O2SAT 94
[2025-05-24 03:55] VITALS: BMI 45.2
--- NOTE | 2025-05-24 07:45 | PCM.PN.HOSP ---
Reason for Visit Reason for Visit: Diagnoses Morbid (severe) obesity due to excess calories (05/20/25) Metabolic encephalopathy (05/20/25) Essential (primary) hypertension (05/20/25) Acute cystitis with hematuria (05/20/25) Urinary tract infection, site not specified (05/20/25) Diarrhea, unspecified (05/20/25) Other malaise (05/20/25) Unspecified abnormal findings in urine (05/20/25) Body mass index [BMI] 40.0-44.9, adult (05/20/25) Subjective Subjective Feels well. No new events. Objective Data Objective Data Vital Signs: Vital Signs Temp Pulse Resp BP Pulse Ox O2 Del Method 36.7 C 66 16 120/51 L 94 Room Air 05/24/25 02:37 05/24/25 02:37 05/24/25 02:37 05/24/25 02:37 05/24/25 02:37 05/24/25 02:37 Oxygen Delivery Method Room Air Weight: 111.6 kg Body Mass Index (BMI) 45.2 Intake & Output: Intake and Output for Last 24 Hours 05/22/25 05/23/25 05/24/25 23:59 23:59 23:59 Intake Total 50 / 410 1130 / 1130 Output Total 350 / 350 Balance -300 / 60 1130 / 1130 Lab / Micro Data 05/23/25 04:36 05/23/25 04:36 Labs: Laboratory Results - last 24 hr 05/23/25 11:33: POC Glucose 151 H 05/23/25 16:40: POC Glucose 121 H 05/23/25 21:15: POC Glucose 114 H 05/24/25 06:16: POC Glucose 114 H Micro: Microbiology 05/20/25 21:59 Urine Catheter - Catheter Urine Culture - Preliminary Escherichia coli Gram negative silvestre 05/21/25 10:40 Stool Stool Lactoferrin - Final 05/21/25 10:40 Stool Enteric Bacteriology - Final 05/21/25 10:40 Stool Clostridioides difficile (PCR) - Final Physical Exam Const alert and no apparent distress Constitutional Narrative: up in chair. HEENT head/scalp atraumatic and moist oral mucous membranes Resp normal respiratory effort, no retractions, no use of accessory muscles and clear to auscultation bilaterally Cardio regular rate, regular rhythm, S1 normal heart sound and S2 normal heart sound GI normal to inspection, nondistended, normoactive bowel sounds and soft to palpation Assessment & Plan Assessment/Plan (1) UTI (urinary tract infection): PLAN: UCx showing Change to nitrofurantoin from ceftriaxone. (2) Debility: PLAN: plan for SNF awaiting on precertification. (3) Acute metabolic encephalopathy: PLAN: 2/[address] negative. UDS negative. PLAN: Plan Chronic conditions: SSI anemia: stable. obesity class III: complicates care and recovery. VTE prophylaxis: LMWH. Disposition: to [facility] pending insurance authorization. Avoidable day: Patient medically stable for discharge since . Patient medically stable for discharge since the . Charges/Coding Visit Charges Inpatient E&M: 75299 Subs Hosp L2
[2025-05-24 08:51] VITALS: BP 143/70; PULSE 68; RESP 18; TEMP 36.7; O2SAT 97
[2025-05-24] MEDS: Petrolatum 33% Tube 1 APPLIC TOPICAL ×2 (08:55→21:19)
[2025-05-24] MEDS: Aspirin E.C. 81 MG Tablet PO (08:56)
[2025-05-24 16:39] VITALS: BP 138/60; PULSE 60; RESP 16; TEMP 36.7; O2SAT 100
[2025-05-24 20:15] VITALS: BP 103/41; PULSE 60; RESP 16; TEMP 36.5; O2SAT 97
[2025-05-25 02:20] VITALS: BP 126/51; PULSE 66; RESP 16; TEMP 36.6; O2SAT 95
[2025-05-25 05:27] VITALS: BMI 44.6
--- NOTE | 2025-05-25 07:22 | PCM.PN.HOSP ---
Reason for Visit Reason for Visit: Diagnoses Morbid (severe) obesity due to excess calories (05/20/25) Metabolic encephalopathy (05/20/25) Essential (primary) hypertension (05/20/25) Acute cystitis with hematuria (05/20/25) Urinary tract infection, site not specified (05/20/25) Diarrhea, unspecified (05/20/25) Other malaise (05/20/25) Unspecified abnormal findings in urine (05/20/25) Body mass index [BMI] 40.0-44.9, adult (05/20/25) Subjective Subjective Feeling well. No events. Objective Data Objective Data Vital Signs: Vital Signs Temp Pulse Resp BP Pulse Ox O2 Del Method 36.6 C 66 16 126/51 H 95 Room Air 05/25/25 02:20 05/25/25 02:20 05/25/25 02:20 05/25/25 02:20 05/25/25 02:20 05/25/25 02:20 Oxygen Delivery Method Room Air Weight: 110 kg Body Mass Index (BMI) 44.6 Intake & Output: Intake and Output for Last 24 Hours 05/23/25 05/24/25 05/25/25 23:59 23:59 23:59 Intake Total 1130 / 1130 480 / 480 Balance 1130 / 1130 480 / 480 Lab / Micro Data 05/23/25 04:36 05/23/25 04:36 Labs: Laboratory Results - last 24 hr 05/24/25 11:55: POC Glucose 157 H 05/24/25 16:37: POC Glucose 131 H 05/24/25 21:17: POC Glucose 113 H 05/25/25 06:03: POC Glucose 125 H Micro: Microbiology 05/20/25 21:59 Urine Catheter - Catheter Urine Culture - Preliminary Escherichia coli Gram negative silvestre 05/21/25 10:40 Stool Stool Lactoferrin - Final 05/21/25 10:40 Stool Enteric Bacteriology - Final 05/21/25 10:40 Stool Clostridioides difficile (PCR) - Final Physical Exam Const alert and no apparent distress Constitutional Narrative: up in chair. HEENT head/scalp atraumatic and moist oral mucous membranes Resp normal respiratory effort and no retractions Assessment & Plan Assessment/Plan (1) UTI (urinary tract infection): PLAN: UCx showing villanueva-sensitive E. coli Changed to nitrofurantoin from ceftriaxone. (2) Debility: PLAN: plan for SNF awaiting on precertification. (3) Acute metabolic encephalopathy: PLAN: resolved 2/[address] negative. UDS negative. PLAN: Plan Chronic conditions: SSI anemia: stable. obesity class III: complicates care and recovery. VTE prophylaxis: LMWH. Disposition: to [place] pending insurance authorization. Avoidable day: Patient medically stable for discharge since . Charges/Coding Visit Charges Inpatient E&M: 81814 [facility] Hosp L1
--- NOTE | 2025-05-25 08:49 | CASEMGMT ---
Discharge Planning Updates sent to [place]. Susana Torres DC Planning Asst.
[2025-05-25 09:48] VITALS: BP 145/48; PULSE 68; RESP 16; TEMP 36.7; O2SAT 96
[2025-05-25] MEDS: Petrolatum 33% Tube 1 APPLIC TOPICAL ×2 (09:57→21:13)
[2025-05-25] MEDS: Aspirin E.C. 81 MG Tablet PO (09:57)
--- NOTE | 2025-05-25 10:57 | PCM.TXEXTCAR ---
Diet Diet Order/Speech Therapy: INPATIENT Hospital Diet / Speech Therapy Order(s) 05/21/25 00:05 Diet: Consistent Carb - Calorie Controlled Food consistency:: Regular Liquid Consistency:: Regular/Thin Dietary Modifications:: Cardiac / Heart Healthy Diet Comments: Allergic to Merino Peppers How many daily calories?: 1800 calorie Routine Orders/Code Status Code Status: Full Code DC O2, CPAP, BIPAP needs Home O2 Discharge instructions: No Wound(s) back of thighs, under buttocks: Wound Type: Abrasion Therapies Weight Bearing: Full weight bearing Physical Therapy: Eval and Treat Occupational Therapy: Eval and Treat Problem/Diagnosis (1) UTI (urinary tract infection): Status: Acute Code(s): N39.0 - Urinary tract infection, site not specified Plan: UCx showing villanueva-sensitive E. coli Changed to nitrofurantoin from ceftriaxone. (2) Debility: Status: Acute Code(s): R53.81 - Other malaise Plan: plan for SNF awaiting on precertification. (3) Acute metabolic encephalopathy: Status: Acute Code(s): G93.41 - Metabolic encephalopathy Plan: resolved 2/[address] negative. UDS negative. Plan Chronic conditions: SSI anemia: stable. obesity class III: complicates care and recovery. VTE prophylaxis: LMWH. Disposition: to [place] pending insurance authorization. Avoidable day: Patient medically stable for discharge since . Allergies/Procedures Done in Hospital Allergies wool Allergy (Verified 05/20/25 22:06) Rash merino pepper (pepper green) Adverse Reaction (Verified 05/20/25 22:06) Diarrhea Penicillins Adverse Reaction (Verified 05/20/25 21:38) confusion Procedures: None Type of Care/Length of Stay Estimated LOS: Convalescent Care Less Than 30 days Type of Care Needed: Skilled Rehab Potential: Good Prognosis: Good Additional Orders/Day of Discharge Day of Discharge: 05/25/25 Dietary and Speech Recommendations Dietitian Recommendations/Changes: 1800 calorie/consistent carbohydrate; cardiac diet and consult MAPPING PILOT if difficulty chewing/swallowing. ONS if Po declines at meals; will defer for now. Discharge Plan Admission Admit Date/Time: 05/20/25 23:44 Primary Reason for Your Visit: UTI Attending Provider: Jefferson Salinas Primary Care Provider: Jose Brothers Consulting Providers: Quentin Castillo; Dorene Suresh Discharge Orders/Prescriptions Prescriptions: New acetaminophen 325 mg Tablet 650 mg PO Q6H PRN PRN (Reason: Pain 1-10 Or Fever>100.7) Qty: 0 0RF amlodipine 5 mg Tablet 5 mg PO DAILY Qty: 0 0RF nystatin 100,000 unit/gram Powder 1 applic topical BID Qty: 15 0RF Protocol: *Topical Application Instructions APPLICATION INSTRUCTIONS: abdominal folds, under breast insulin lispro [Humalog KwikPen Insulin] 100 unit/mL Insulin Pen See Protocol subcut ACHS Qty: 0 0RF Protocol: 1. Sliding Scale Insulin Low Dosing Condition: 150-224 mg/dl = 1 unit Condition: 225-299 mg/dl = 2 units Condition: 300-374 mg/dl = 3 units Condition: 375-449 mg/dl = 4 units Condition: Greater than 449 call physician Protocol Text: Suggested for: - Patients on Total Daily Insulin Dose of 15-27 units - Thin, elderly, renal patients LOW DOSING ALGORITHM nitrofurantoin monohyd/m-cryst 100 mg Capsule 100 mg PO BID Qty: 0 0RF Rx Instructions: through 05/29/2025, then stop Continued alendronate 70 mg tablet 70 mg PO QWEEK atenolol 100 mg tablet 100 mg PO DAILY glimepiride 2 mg tablet 2 mg PO DAILY spironolactone 25 mg tablet 25 mg PO DAILY aspirin 81 mg tablet,delayed release (DR/EC) 81 mg PO DAILY loratadine [Claritin] 10 mg tablet 10 mg PO DAILY topiramate [Topamax] .ROUTE pravastatin 10 mg tablet 10 mg PO QHS Referrals / Follow Up: Jose Brothers MD [Primary Care Provider] - Within 2 Weeks [facility],Out of [Non-Staff] - Disposition Disposition (needs filled in before D/C Order can be placed): [facility]
[2025-05-25 13:42] VITALS: BP 128/64; PULSE 68; RESP 16; TEMP 36.6; O2SAT 99
[2025-05-25 20:13] VITALS: BP 126/60; PULSE 58; RESP 16; TEMP 36.6; O2SAT 99
[2025-05-26 02:15] VITALS: BP 138/58; PULSE 64; RESP 16; TEMP 36.6; O2SAT 94
[2025-05-26 05:54] VITALS: BMI 44.9
--- NOTE | 2025-05-26 07:42 | PN.HOSP_ITS ---
Reason for Visit Reason for Visit: Diagnoses Morbid (severe) obesity due to excess calories (05/20/25) Metabolic encephalopathy (05/20/25) Essential (primary) hypertension (05/20/25) Acute cystitis with hematuria (05/20/25) Urinary tract infection, site not specified (05/20/25) Diarrhea, unspecified (05/20/25) Other malaise (05/20/25) Unspecified abnormal findings in urine (05/20/25) Body mass index [BMI] 40.0-44.9, adult (05/20/25) Subjective Subjective Feeling well. No new events. Objective Data Objective Data Vital Signs: Vital Signs Temp Pulse Resp BP Pulse Ox O2 Del Method 36.6 C 64 16 138/58 H 94 Room Air 05/26/25 02:15 05/26/25 02:15 05/26/25 02:15 05/26/25 02:15 05/26/25 02:15 05/26/25 02:15 Oxygen Delivery Method Room Air Weight: 110.6 kg Body Mass Index (BMI) 44.9 Intake & Output: Intake and Output for Last 24 Hours 05/24/25 05/25/25 05/26/25 23:59 23:59 23:59 Intake Total 480 / 480 Balance 480 / 480 Lab / Micro Data 05/23/25 04:36 05/23/25 04:36 Labs: Laboratory Results - last 24 hr 05/25/25 11:07: POC Glucose 164 H 05/25/25 16:24: POC Glucose 123 H 05/25/25 21:12: POC Glucose 103 05/26/25 06:40: POC Glucose 124 H Micro: Microbiology 05/20/25 21:59 Urine Catheter - Catheter Urine Culture - Final Escherichia coli Providencia stuartii 05/21/25 10:40 Stool Stool Lactoferrin - Final 05/21/25 10:40 Stool Enteric Bacteriology - Final 05/21/25 10:40 Stool Clostridioides difficile (PCR) - Final Physical Exam Const alert and no apparent distress Constitutional Narrative: Up in chair. No respiratory distress. No conversational dyspnea. Resp normal respiratory effort and no retractions Psych affect normal Assessment & Plan Assessment/Plan (1) UTI (urinary tract infection): PLAN: UCx showing villanueva-sensitive E. coli Changed to nitrofurantoin from ceftriaxone. (2) Debility: PLAN: plan for SNF awaiting on precertification. (3) Acute metabolic encephalopathy: PLAN: resolved 2/[address] negative. UDS negative. PLAN: Plan Chronic conditions: * SSI * anemia: stable. * obesity class III: complicates care and recovery. VTE prophylaxis: LMWH. Disposition: to [place] pending insurance authorization. Avoidable day: Patient medically stable for discharge since May. Waiting on insurance approval. Charges/Coding Visit Charges Inpatient E&M: 54411 [facility]s Hosp L2
[2025-05-26 08:22] VITALS: BP 138/63; PULSE 61; RESP 16; TEMP 36.6; O2SAT 96
[2025-05-26] MEDS: Aspirin E.C. 81 MG Tablet PO (08:29)
[2025-05-26] MEDS: Petrolatum 33% Tube 1 APPLIC TOPICAL (11:04)
[2025-05-26 13:37] VITALS: BP 140/61; PULSE 60; RESP 16; TEMP 36.7; O2SAT 98
--- NOTE | 2025-05-26 13:42 | PCM.DC.SUM ---
Providers Date of Admission: 05/20/25 Primary Care Physician: Dr. Jose Brothers MD Reason For Visit: UTI, DIARRHEA AND ACUTE METABOLIC ENCEPHALOPATHY Diagnosis Discharge Diagnosis (1) UTI (urinary tract infection): Status: Acute Code(s): N39.0 - Urinary tract infection, site not specified Plan: UCx showing villanueva-sensitive E. coli Changed to nitrofurantoin from ceftriaxone. (2) Debility: Status: Acute Code(s): R53.81 - Other malaise Plan: plan for SNF awaiting on precertification. (3) Acute metabolic encephalopathy: Status: Acute Code(s): G93.41 - Metabolic encephalopathy Plan: resolved 2/[address] negative. UDS negative. Plan Chronic conditions: SSI anemia: stable. obesity class III: complicates care and recovery. VTE prophylaxis: LMWH. Disposition: to [place] pending insurance authorization. Avoidable day: Patient medically stable for discharge since May. Waiting on insurance approval. Medications at Discharge Home Medications alendronate 70 mg tablet 70 mg PO QWEEK , 05/21/25 aspirin 81 mg tablet,delayed release 81 mg PO DAILY unknown 05/21/25 atenolol 100 mg tablet 100 mg PO DAILY bp 05/21/25 glimepiride 2 mg tablet 2 mg PO DAILY glucose 05/21/25 loratadine 10 mg tablet (Claritin) 10 mg PO DAILY unknown 05/21/25 pravastatin 10 mg tablet 10 mg PO QHS unknown 05/21/25 spironolactone 25 mg tablet 25 mg PO DAILY diuretic 05/21/25 topiramate .ROUTE unknown 05/21/25 acetaminophen 325 mg tablet 650 mg (2 x 325 mg) PO Q6H PRN PRN Pain 1-10 Or Fever>100.7 #0 tabs 05/25/25 amlodipine 5 mg tablet 5 mg PO DAILY #0 tabs 05/25/25 insulin lispro 100 unit/mL subcutaneous pen (Humalog KwikPen (U-100) Insulin) See Protocol subcut ACHS #0 mL 05/25/25 nitrofurantoin monohydrate/macrocrystals 100 mg capsule 100 mg PO BID #0 caps 05/25/25 nystatin 100,000 unit/gram topical powder 1 applic topical BID #15 grams 05/25/25 Hospital Course Operations None Procedures None Summary of Care Provided Hospital Course: Presents with confusion. Patient was found to have urinary tract infection. Patient likely had encephalopathy due to the underlying urinary tract infection but patient overall is improved. Patient was deemed weak and [facility]. Patient was stable since the seventh and we are waiting on insurance authorization which came through today. Weight / BMI Weight Weight: 110.6 kg Body Mass Index (BMI) 44.9 ABG / Lab / Microbiology Data 05/23/25 04:36 05/23/25 04:36 Laboratory: Laboratory Results - last 24 hr 05/25/25 16:24: POC Glucose 123 H 05/25/25 21:12: POC Glucose 103 05/26/25 06:40: POC Glucose 124 H 05/26/25 11:18: POC Glucose 172 H Microbiology: Microbiology 05/20/25 21:59 Urine Catheter - Catheter Urine Culture - Final Escherichia coli Providencia stuartii 05/21/25 10:40 Stool Stool Lactoferrin - Final 05/21/25 10:40 Stool Enteric Bacteriology - Final 05/21/25 10:40 Stool Clostridioides difficile (PCR) - Final D/C Instructions Discharge Diet: No restrictions DC O2, CPAP, BIPAP Needs Home O2 Discharge instructions: No Meaningful Use Info Meaningful Use Meaningful Use Diagnoses (Choose all that apply): None applicable Ischemic Stroke Statin Dosing Therapy Reference: STATIN DOSE THERAPY REFERENCE: * Patients > 75 years receive moderate or high dose statin therapy. * Patients 75 years or YOUNGER should receive HIGH intensity statin dose unless contraindicated. You will be required to document reason for non-treatment if statin daily dose does not meet guidelines. HIGH DOSE STATIN THERAPY DAILY Atorvastatin > than or = to 40 mg Rosuvastatin > than or = to 20 mg Amlodipine + Atorvastatin > than or = to 2.5/40 mg Ezetimibe + Simvastatin 10/80 mg Simvastatin 80mg Discharge Plan Admission Admit Date/Time: 05/20/25 23:44 Primary Reason for Your Visit: UTI Attending Provider: Jefferson Salinas Primary Care Provider: Jose Brothers Consulting Providers: Quentin Castillo; Dorene Suresh Discharge Orders/Prescriptions Prescriptions: New acetaminophen 325 mg Tablet 650 mg PO Q6H PRN PRN (Reason: Pain 1-10 Or Fever>100.7) Qty: 0 0RF amlodipine 5 mg Tablet 5 mg PO DAILY Qty: 0 0RF nystatin 100,000 unit/gram Powder 1 applic topical BID Qty: 15 0RF Protocol: *Topical Application Instructions APPLICATION INSTRUCTIONS: abdominal folds, under breast insulin lispro [Humalog KwikPen Insulin] 100 unit/mL Insulin Pen See Protocol subcut ACHS Qty: 0 0RF Protocol: 1. Sliding Scale Insulin Low Dosing Condition: 150-224 mg/dl = 1 unit Condition: 225-299 mg/dl = 2 units Condition: 300-374 mg/dl = 3 units Condition: 375-449 mg/dl = 4 units Condition: Greater than 449 call physician Protocol Text: Suggested for: - Patients on Total Daily Insulin Dose of 15-27 units - Thin, elderly, renal patients LOW DOSING ALGORITHM nitrofurantoin monohyd/m-cryst 100 mg Capsule 100 mg PO BID Qty: 0 0RF Rx Instructions: through 05/29/2025, then stop Continued alendronate 70 mg tablet 70 mg PO QWEEK atenolol 100 mg tablet 100 mg PO DAILY glimepiride 2 mg tablet 2 mg PO DAILY spironolactone 25 mg tablet 25 mg PO DAILY aspirin 81 mg tablet,delayed release (DR/EC) 81 mg PO DAILY loratadine [Claritin] 10 mg tablet 10 mg PO DAILY topiramate [Topamax] .ROUTE pravastatin 10 mg tablet 10 mg PO QHS Referrals / Follow Up: Jose Brothers MD [Primary Care Provider] - Within 2 Weeks [facility] Doctor,Out of [Non-Staff] - Disposition Disposition (needs filled in before D/C Order can be placed): Intermediate Facility Charges/Coding Visit Charges Inpatient E&M: 93185 Disch Hosp
--- NOTE | 2025-05-26 14:31 | CASEMGMT ---
Social Work- SW updated pt that precert has been approved. SW will update as discharge time is available. YANN Collins
--- NOTE | 2025-05-26 14:50 | CASEMGMT ---
Social Work Precert has been obtained.? Physician updated and pt is ready for discharge today.? 7000 convalescent form completed in [facility] and sent along with discharge orders to [facility].? [facility] arranged with [facility] for 8:30PM pickup via wheelchair van.? SW met with pt and they are agreeable to discharge plan as stated above.? Pt reports that she will let friend/dry dip worker know of discharge. Bedside nurse notified of discharge time. Disposition:[facility]: skilled level of care YANN Collins
--- NOTE | 2025-05-26 20:30 | NURSING ---
[facility] here to [facility] patient.
[2025-05-26 20:38] VITALS: BP 137/54; PULSE 68; RESP 16; TEMP 36.6; O2SAT 96
== END 2025-05-26 20:31 | disposition skilled nursing facility (03) | DRG 689 ==
LOC: ED 22:48 → MS3 05-21 00:45
PROVIDERS: Internal Medicine; Admitting Provider Internal Medicine; Emergency Provider Emergency Medicine; PCP Emergency Medicine
DX: N39.0 Urinary tract infection, site not specified (principal); G93.41 Metabolic encephalopathy; Z68.42 Body mass index [BMI] 45.0-49.9, adult; E11.9 Type 2 diabetes mellitus without complications; D64.9 Anemia, unspecified; E66.01 Morbid (severe) obesity due to excess calories; B96.20 Unspecified Escherichia coli [E. coli] as the cause of diseases classified elsewhere; I10 Essential (primary) hypertension; R19.7 Diarrhea, unspecified; E78.00 Pure hypercholesterolemia, unspecified; I87.8 Other specified disorders of veins; E66.813 Obesity, class 3; M81.0 Age-related osteoporosis without current pathological fracture; Z79.01 Long term (current) use of anticoagulants; R53.81 Other malaise; R41.82 Altered mental status, unspecified; Z85.3 Personal history of malignant neoplasm of breast; Z85.038 Personal history of other malignant neoplasm of large intestine
CPT/HCPCS: 36415; 70450; 80048; 80053; 80061; 80307; 81001; 82077; 82607; 82746; 82962; 83036; 83605; 83630; 83735; 84100; 84443; 85025; 85027; 87077; 87086; 87088; 87186; 87493; 87506; 94668; 97116; 97161; 97165; 97530; 97535; 99285; P9612; A4216; J0696